=== PATIENT | female | born 1935 | race Caucasian/White ===

== ENCOUNTER 2019-08-22 01:33 | Day surgery (SDC) | payer MEDICARE, SELFPAY ==
[2019-08-21 15:26] VITALS: BMI 19.9
[2019-08-22 08:37] VITALS: BP 147/82; PULSE 62; RESP 16; TEMP 37.1; O2SAT 100
[2019-08-22] MEDS: LACTATED RINGERS 1,000 ML 150 ML IV CONT (08:44)
--- NOTE | 2019-08-22 09:06 | P.PNAN_ITS ---
Anes - Initial Pre Proc Eval Procedure: Operation Date: 08/22/19 09:00 Proposed Procedures p Esophagogastroduodenoscopy - Manuel Dempsey MD Date/Time: 08/22/19 09:06 Surgeon: Manuel Dempsey MD Pre Op Diagnosis: abd pain Patient Data Age: 83 Gender: F Height: 5 ft 1.5 in Weight: 46.9 kg Last Vital Signs Temp 98.7 F 08/22/19 08:37 Pulse 62 08/22/19 08:37 Resp 16 08/22/19 08:37 BP 147/82 H 08/22/19 08:37 Pulse Ox 100 08/22/19 08:37 Allergies Allergy/AdvReac Type Severity Reaction Status Date / Time No Known Allergies Allergy Verified 08/22/19 08:31 Home Medications Medication Instructions Recorded Confirmed Type famotidine 20 mg tablet 20 mg PO BID tablet 08/20/19 08/21/19 History ondansetron HCl 4 mg tablet 4 mg PO Q8H 08/20/19 08/21/19 History pantoprazole 40 mg tablet,delayed 40 mg PO QAM 08/20/19 08/21/19 History release sertraline 25 mg tablet 25 mg PO DAILY 08/20/19 08/21/19 History docusate sodium [Stool Softener] 50 mg PO DAILY PRN 08/21/19 08/21/19 History polyethylene glycol 3350 [Miralax] 17 g PO DAILY PRN 08/21/19 08/21/19 History Patient hx anesthesia problems: none Family hx anesthesia problems: none [facility] Past Medical History Medical History (Updated 08/22/19 @ 09:05 by Ayush Bains MD) Abdominal pain Anxiety Arthritis Constipation GERD (gastroesophageal reflux disease) Nausea and vomiting in adult Anes - Eval Final PreProcedure Day of Procedure 08/22/19 09:06 Patient weight: normal Heart: regular rate and rhythm Lungs: clear to auscultation Airway: Mallampati scale class II Neurological: alert and oriented Last oral intake: >/= 8 hours ASA classification: II Emergent: no Anesthetic plan: proceed Anesthesia type and monitoring: general GIVS and standard monitoring Informed Consent: The patient's anesthetic plan and its attendant risks and benefits were discussed with the patient/family/POA. Questions were solicited and answers provided to the satisfaction of the patient/family/POA.
--- NOTE | 2019-08-22 09:24 | WPDHPUPDATE1 ---
History and Physical Update Update Date/Time: 08/22/19 09:24 History and Physical has been reviewed, including an updated exam of the patient. There are NO changes in the patient's condition. Risks, benefits, and alternatives have been discussed and questions answered. Patient agrees to proceed with procedure.
[2019-08-22 09:43] VITALS: BP 123/71; PULSE 62; RESP 16; O2SAT 100
[2019-08-22 09:53] VITALS: BP 141/78; PULSE 58; RESP 16; O2SAT 100
[2019-08-22 10:03] VITALS: BP 141/78; PULSE 60; RESP 16; O2SAT 100
== END 2019-08-22 10:20 | disposition home or self-care (01) ==
PROVIDERS: PCP Family Medicine; Visit Provider Internal Medicine Gastroenterology
PROC: 0DJ08ZZ Inspection of Upper Intestinal Tract, Via Natural or Artificial Opening Endoscopic (ICD-10-PCS; CPT 43235; principal; 2019-08-22 09:00)
DX: K44.9 Diaphragmatic hernia without obstruction or gangrene (principal); K29.50 Unspecified chronic gastritis without bleeding; K21.9 Gastro-esophageal reflux disease without esophagitis; K59.00 Constipation, unspecified; M19.90 Unspecified osteoarthritis, unspecified site; F41.9 Anxiety disorder, unspecified
CPT/HCPCS: 43239; 88305; J2704; J7120